=== PATIENT | female | born 1970 | race Caucasian/White ===

== ENCOUNTER 2016-08-10 09:52 | Emergency (ER) | payer OTHER ==
[2016-08-10] MEDS ORDERED: DIATRIZOATE MEGLU/DIATRIZO SOD 30 ML BTL PO ONE (10:39)
[2016-08-10] MEDS ORDERED: diphenhydrAMINE HCL 50 MG/ML VIAL IV ONE (10:42)
[2016-08-10] MEDS ORDERED: METOCLOPRAMIDE HCL 5 MG/ML VIAL IV ONE (10:42)
--- NOTE | 2016-08-10 10:46 | ERNOTE ---
Abdominal HPI - Narrative Date of Service: 08/10/16 - General Chief Complaint: Abdominal Pain Time Seen by Provider: 08/10/16 10:15 Source: patient Exam Limitations: no limitations - Immun/Allergies/Home Medications Immunizatons: IMMUNIZATION HX Immunizations Up to Date Yes History of Influenza Vaccine Yes Hx Pneumococcal Vaccination No Allergies/Adverse Reactions: Allergies ciprofloxacin [From Cipro] Allergy (Verified 08/10/16 10:20) Vomiting ciprofloxacin HCl [From Cipro] Allergy (Verified 08/10/16 10:20) Vomiting Home Medications: HOME MEDICATIONS Acetaminophen with Codeine [Tylenol with Codeine #3 Tablet] 1 each PO Q6H PRN # 24 tab 08/10/16 [Last Taken Unknown] L.acidoph & Paracasei,B.lactis [Probiotic] 1 each PO DAILY 08/10/16 [Last Taken Unknown] Ondansetron [Zofran Odt] 4 mg PO Q6H PRN #12 tab 08/10/16 [Last Taken Unknown] Sulfamethoxazole/Trimethoprim [Bactrim Ds] 1 tab PO BID #20 tab 08/10/16 [Last Taken Unknown] metroNIDAZOLE [Flagyl] 500 mg PO BID #20 tablet 08/10/16 [Last Taken Unknown] - History of Present Illness Narrative: Pt presents with recurrent abdominal pain. She was diagnosed with either diverticulitis or an early colon tumor in 2014, however pt has not followed up those concerns at this time. Timing: constant, intermittent Quality: moderate, cramping Activities at Onset: none Associated Symptoms: Present: nausea Prior Abdominal Problems: Present: other - as noted Review of Systems - Review of Systems Constitutional: Present: See HPI EYE: Present: no symptoms reported ENT: Present: no symptoms reported Respiratory: Present: no symptoms reported Cardiology: Present: no symptoms reported Gastrointestinal/Abdominal: Present: See HPI, nausea, abdominal pain Genitourinary: Present: no symptoms reported Musculoskeletal: Present: no symptoms reported Skin: Present: no symptoms reported Neurological: Present: no symptoms reported Endocrine: Present: no symptoms reported Hematologic/Lymphatic: Present: no symptoms reported Psych: Present: no symptoms reported - Patient's Past Medical History Patient History - Medical: Other - diverticulitis or possible colon cancer Patient History - Cardiac/Respiratory: No pertinent hx Patient History - Cancer: No Hx of Cancer Patient History - Surgical Procedures: Appendectomy, Patient History - Other: None - Social History Smoking Status: Never smoker Have you smoked in the past 12 months: No - Immunizations Immunizations Up to Date: Yes Hx Pneumococcal Vaccination: No History of Influenza Vaccine: Yes Physical Exam - Physical Exam General Appearance: Present: wd/wn, alert, moderate distress Eye Exam: Normal inspection: bilateral, PERRL: bilateral Ears, Nose, Throat: Present: normal ENT inspection, hearing grossly normal, normal pharynx Neck: Present: normal inspection, nontender Respiratory: Present: no respiratory distress, normal breath sounds, no accessory muscle use, chest nontender, lungs clear Cardiovascular/Chest: Present: regular rate, rhythm, no murmur, normal peripheral pulses Gastrointestinal/Abdominal: Present: normal bowel sounds, nondistended, soft, no organomegaly, tenderness - LLQ Rectal Exam: Present: deferred Back Exam: Present: normal inspection, normal range of motion Extremity Exam: Present: normal inspection, non-tender, no edema, normal range of motion Neurological Exam: Present: alert, oriented, normal mood/affect Skin Exam: Present: normal color, warm/dry Lymphatic Exam: Present: no adenopathy ED Progress - Results and Orders Patient's Lab Results:: I have reviewed the patient's lab results. - Vital Signs Patient's Vital Signs:: I have reviewed the patient's vital signs. Vital Signs: Vital Signs 08/10/16 10:16 Temperature 37.5 C Pulse Rate 91 Respiratory 14 Rate Blood Pressure 152/103 O2 Sat by Pulse 96 Oximetry - CT/Ultrasound CT/Ultrasound Narrative: report reviewed - Progress/Reassessment Chief Complaint: Abdominal Pain Progress:: Unchanged - Transfer of Care Expected Disposition: Discharge Departure - Departure Clinical Impression: Diverticulitis Qualifiers: Diverticulitis site: large intestine Diverticulitis bleeding: without bleeding Diverticulitis complication: without perforation or abscess Qualified Code(s): K57.32 - Diverticulitis of large intestine without perforation or abscess without bleeding Disposition: Home self-care Condition: Good Instructions: Diverticulitis, [id number] Referrals: Christopher Singh MD [Primary Care Provider] - Prescriptions: Acetaminophen with Codeine [Tylenol with Codeine #3 Tablet] 1 each PO Q6H PRN # 24 tab PRN Reason: Moderate Pain Ondansetron [Zofran Odt] 4 mg PO Q6H PRN #12 tab PRN Reason: Nausea And Vomiting Sulfamethoxazole/Trimethoprim [Bactrim Ds] 1 tab PO BID #20 tab metroNIDAZOLE [Flagyl] 500 mg PO BID #20 tablet
[2016-08-10] MEDS ORDERED: diphenhydrAMINE HCL 50 MG/ML VIAL ONE (10:48)
[2016-08-10] MEDS ORDERED: DIATRIZOATE MEGLU/DIATRIZO SOD 30 ML BTL ONE (10:48)
[2016-08-10] MEDS ORDERED: METOCLOPRAMIDE HCL 5 MG/ML VIAL ONE (10:48)
[2016-08-10 10:57] LABS: Hematocrit 38.5 % (37.0-47.0); Hemoglobin 13.1 gm/dL (12.5-16.0); Mean Corpuscular Hemoglobin 28.9 pg (27-31); Mean Platelet Volume 8.6 fl (6.0-9.5); Neutrophil # 6.1 K/mm3 (1.3-6.0); Neutrophil % 68.9 % (42-75.0); Platelet Count 325 K/mm3 (150-450); Red Blood Count 4.53 M/mm3 (4.2-5.4); White Blood Count 8.8 K/mm3 (4.0-10.5)
[2016-08-10 11:13] LABS: Albumin * 3.7 gm/dl (3.4-5.0); BUN/Creatinine Ratio 7.5 (9.0-21.6); Bilirubin, Total 0.7 mg/dL (0.0-1.1); Ca. Corrected For Albumin 8.7 mg/dL (8.4-10.2); Calcium * 8.8 mg/dL (7.9-10.9); Carbon Dioxide 25.9 mmol/L (24-32.6); Potassium 3.9 mmol/L (3.4-4.6)
[2016-08-10 12:10] LABS: Urine Appearance Clear; Urine Color Dark Yellow
[2016-08-10 12:11] LABS: Urine Bacteria TRACE; Urine Bilirubin Negative (NEGATIVE); Urine Blood 50 /ul (NEGATIVE); Urine Ketone 15 mg/dL (NEGATIVE); Urine Nitrite Negative (NEGATIVE); Urine Protein Negative (NEGATIVE); Urine RBC 0-5 /hpf (0-5); Urine Urobilinogen Normal (NORMAL); Urine WBC 0-5 /hpf (0-5); Urine pH 5.5 pH (5.0-7.0)
[2016-08-10 14:37] VITALS: BP 150/90
== END 2016-08-10 14:35 | disposition home or self-care (01) ==
LOC: ER 09:52
DX: K57.32 Diverticulitis of large intestine without perforation or abscess without bleeding (principal)

== ENCOUNTER 2018-12-05 16:15 | Inpatient (IN) ==
[2018-12-05] MEDS ORDERED: HYDROmorphone HCL 1 MG/ML DISP.SYRIN IV ONE (16:34)
--- NOTE | 2018-12-05 16:36 | ERNOTE ---
Abdominal HPI - Narrative Date of Service: 12/05/18 - General Chief Complaint: Abdominal Pain Time Seen by Provider: 12/05/18 16:15 Source: patient Exam Limitations: no limitations - Immun/Allergies/Home Medications Immunizatons: IMMUNIZATION HX Immunizations Up to Date Yes History of Influenza Vaccine No Hx Pneumococcal Vaccination No Allergies/Adverse Reactions: Allergies ciprofloxacin [From Cipro] Adverse Reaction (Verified 01/08/18 13:48) Vomiting Also causes violent stomach cramps metronidazole [From Flagyl] Adverse Reaction (Verified 01/08/18 13:48) Vomiting Home Medications: HOME MEDICATIONS L.acidoph,Paracasei, B.lactis [Probiotic] 1 ea PO DAILY 08/10/16 [Last Taken 12/03/18 20:00] metoprolol tartrate 25 mg tablet 25 mg PO BID #60 tab 01/22/18 [Last Taken 12/03 20:00] Acetaminophen with Codeine [Tylenol with Codeine #3 Tablet] 1 ea PO Q6H PRN #20 tab 12/05/18 [Last Taken Unknown] Amox Tr/Potassium Clavulanate [Augmentin 875-125 Tablet] 875 mg PO Q12H #20 tab 12/05/18 [Last Taken Unknown] Ondansetron [Zofran Odt] 4 mg PO Q6H PRN #20 tab 12/05/18 [Last Taken Unknown] metroNIDAZOLE [Flagyl] 500 mg PO Q8H #30 tab 12/05/18 [Last Taken Unknown] - History of Present Illness Narrative: 48-year-old female presents for abdominal pain. She was seen in our emergency department earlier this morning and diagnosed with acute non-complicated diverticulitis. She was discharged with Augmentin, Flagyl, Zofran, and Tylenol 3 for pain control. She presents again this afternoon for uncontrolled pain. She also reports continued nausea. Timing: getting worse, intermittent Quality: moderate Activities at Onset: none Associated Symptoms: Present: nausea Prior Abdominal Problems: Present: similar symptoms - Previous diagnosis of diverticulitis. Review of Systems - Narrative Narrative: REVIEW OF SYSTEMS GENERAL: Negative for any fevers, chills, or weight loss. HEENT: Denies sore throats, congestion, changes in vision, changes in hearing, CARDIAC: Negative for any chest pain, dyspnea, or palpitations. PULMONARY: Negative for any shortness of breath, cough, or wheezing. GASTROINTESTINAL: Positive for abdominal pain, nausea, vomiting, denies constipation, or diarrhea. GENITOURINARY: Negative for any dysuria, changes in urine output. INTEGUMENTARY: Negative for any rashes. NEUROLOGIC: Negative for changes in vision or headaches. RHEUMATOLOGIC: Negative for any joint pains, Medical History (Updated 12/05/18 @ 20:02 by Lilo Carlson DO) Abdominal pain Onset Date: 05/04/15 LLQ Blood pressure elevated without history of HTN Onset Date: 12/02/17 Broken tooth Onset Date: 12/03/17 Diarrhea Onset Date: 05/04/15 Diverticulitis Onset Date: 05/26/15 Diverticulosis Onset Date: 06/20/15 Gastric ulcer Onset Date: Unknown Irregular menses Onset Date: 07/07/14 Menorrhagia Onset Date: 10/23/16 Ovarian cyst Onset Date: 07/21/14 Pelvic pressure in female Onset Date: 07/07/14 Spontaneous Onset Date: ~12/2008 Vaginitis Onset Date: 07/07/14 [place] teeth extracted Onset Date: Unknown Surgical History: Surgical History (Updated 12/05/18 @ 20:02 by Lilo Carlson DO) Hx of appendectomy Onset Date: ~1993 open Previous section Onset Date: ~2009 pre-eclamptic 01/27/1995, 2009 Family History: Family History (Updated 12/22/17 @ 11:19 by Anastasiya Hicks RN) Brother Asthma Father , age 24 MVA No problems noted. Grandmother COPD (chronic obstructive pulmonary disease) Asthma Diabetes Heart disease Hypertension Thyroid disease Mother , age 69 Hypertension Diabetes Ulcerative colitis Sister Food allergy Social History: Preferred Language Kiswahili Do you have any mosque or No cultural preference? Smoking Status Never smoker Have you smoked in the past 12 No months Do you dip or chew tobacco No Alcohol Use none Drug Use none (Last Updated 01/29/18 @ 13:00 by Christopher Singh MD) No Social History Section defined Physical Exam - Physical Exam General Appearance: Present: alert, moderate distress - in pain Head Exam: Present: normal inspection Neck: Present: normal inspection Respiratory: Present: no respiratory distress Cardiovascular/Chest: Present: regular rate, rhythm, normal peripheral pulses Gastrointestinal/Abdominal: Present: normal bowel sounds, tenderness. Absent: guarding, rebound Extremity Exam: Present: normal inspection Neurological Exam: Present: alert, normal mood/affect Skin Exam: Present: normal color, warm/dry Progress - Date and Time Seen: Date and Time: 12/05/18 16:49 PT presents to the emergency department for uncontrolled pain of her diverticulitis which she was recently diagnosed with this morning. She is also unable to tolerate her p.o. medications. She will need to be treated in the hospital for uncontrolled pain and outpatient therapy failure. I will reach out to the inpatient hospitalist after he got her pain better controlled. 12/05/18 16:49 I have ordered Dilaudid for pain control and IV fluids. 12/05/18 17:[address] Carlson regarding inpatient treatment, patient is accepted and will be seen by the inpatient team. - Vital Signs Vital Signs: Vital Signs 12/05/18 16:26 Temperature 36.9 C Pulse Rate 90 Respiratory Rate 22 H Blood Pressure 148/93 H O2 Sat by Pulse Oximetry 94 - Progress/Reassessment Chief Complaint: Abdominal Pain Departure Clinical Impression: Diverticulitis Qualifiers: Diverticulitis site: large intestine Diverticulitis bleeding: without bleeding Diverticulitis complication: without perforation or abscess Qualified Code(s): K57.32 - Diverticulitis of large intestine without perforation or abscess without bleeding - Departure Disposition: Short Term Hospital Inpatient Condition: Stable
[2018-12-05] MEDS: NORMAL SALINE 1,000 ML IV PRN (16:59)
[2018-12-05] MEDS ORDERED: ONDANSETRON HCL/PF 2 MG/ML VIAL IV ONE (17:29)
[2018-12-05] MEDS ORDERED: ONDANSETRON 4 MG TAB.RAPDIS PO PRN (19:05)
[2018-12-05] MEDS ORDERED: ACETAMINOPHEN WITH CODEINE 1 EACH TABLET PO PRN (19:06)
[2018-12-05] MEDS ORDERED: METOPROLOL TARTRATE 25 MG TABLET PO SCH (19:30)
[2018-12-05] MEDS ORDERED: MORPHINE SULFATE 2 MG/ML DISP.SYRIN IV PRN (19:55)
--- NOTE | 2018-12-05 20:02 | HP ---
Chief Complaint - Chief Complaint Date of Service: 12/05/18 Time of Service: 19:41 Chief Complaint: diverticulitis History of Present Illness: Patient with PMHx of hypertension, diverticulosis, and previous diverticulitis was seen in the ER earlier today and diagnosed with diverticulitis. She started having left lower abdominal pain, vomiting, and diarrhea yesterday. She had a fever just over 100. Decreased appetite. She reported Cipro and Flagyl cause vomiting, but she agreed to start Flagyl and Augmentin. She left the ER, but felt like she was in too much pain and returned. Medical History (Updated 12/05/18 @ 20:02 by Lilo Carlson DO) Abdominal pain Onset Date: 05/04/15 LLQ Blood pressure elevated without history of HTN Onset Date: 12/02/17 Broken tooth Onset Date: 12/03/17 Diarrhea Onset Date: 05/04/15 Diverticulitis Onset Date: 05/26/15 Diverticulosis Onset Date: 06/20/15 Gastric ulcer Onset Date: Unknown Irregular menses Onset Date: 07/07/14 Menorrhagia Onset Date: 10/23/16 Ovarian cyst Onset Date: 07/21/14 Pelvic pressure in female Onset Date: 07/07/14 Spontaneous Onset Date: ~12/2008 Vaginitis Onset Date: 07/07/14 [place] teeth extracted Onset Date: Unknown Surgical History: Surgical History (Updated 12/05/18 @ 20:02 by Lilo Carlson DO) Hx of appendectomy Onset Date: ~1993 open Previous section Onset Date: ~2009 pre-eclamptic 01/27/1995, 2009 Family History: Family History (Updated 12/22/17 @ 11:19 by Anastasiya Hicks RN) Brother Asthma Father , age 24 MVA No problems noted. Grandmother COPD (chronic obstructive pulmonary disease) Asthma Diabetes Heart disease Hypertension Thyroid disease Mother , age 69 Hypertension Diabetes Ulcerative colitis Sister Food allergy Social History: Preferred Language Faroese Do you have any caodaism or No cultural preference? Smoking Status Never smoker Have you smoked in the past 12 No months Do you dip or chew tobacco No Alcohol Use none Drug Use none (Last Updated 01/29/18 @ 13:00 by Christopher Singh MD) No Social History Section defined Review Of Systems (GEN) - Review of Systems Generalized/Overall Review: Present: Chills, Fever Respiratory: Absent: Cough, Shortness of Breath Cardiac: Absent: Chest Pain, Edema Abdominal: Present: Nausea, Vomiting, Abdominal Pain, Diarrhea. Absent: Hematemesis, Bright blood from rectum Genitourinary: Absent: Dysuria Musculoskeletal: Present: No Symptoms Reported Skin: Present: No Symptoms Reported Immunizations: IMMUNIZATION HX Immunizations Up to Date Yes History of Influenza Vaccine No Hx Pneumococcal Vaccination No Allergies/Adverse Reactions: Allergies Allergy/AdvReac Type Severity Reaction Status Date / Time ciprofloxacin [From Cipro] AdvReac Vomiting Verified 01/08/18 13:48 metronidazole [From Flagyl] AdvReac Vomiting Verified 01/08/18 13:48 Home Medications: HOME MEDICATIONS L.acidoph,Paracasei, B.lactis [Probiotic] 1 ea PO DAILY 08/10/16 [Last Taken Unknown] metoprolol tartrate 25 mg tablet 25 mg PO BID #60 tab 01/22/18 [Last Taken Unknown] Acetaminophen with Codeine [Tylenol with Codeine #3 Tablet] 1 ea PO Q6H PRN #20 tab 12/05/18 [Last Taken Unknown] Amox Tr/Potassium Clavulanate [Augmentin 875-125 Tablet] 875 mg PO Q12H #20 tab 12/05/18 [Last Taken Unknown] Ondansetron [Zofran Odt] 4 mg PO Q6H PRN #20 tab 12/05/18 [Last Taken Unknown] metroNIDAZOLE [Flagyl] 500 mg PO Q8H #30 tab 12/05/18 [Last Taken Unknown] Exam - Exam Vital Signs: Vital Signs - Last Taken Temp 36.9 C 12/05/18 16:26 Pulse 94 12/05/18 19:10 Resp 18 12/05/18 19:10 BP 134/88 12/05/18 19:10 Pulse Ox 98 12/05/18 19:10 Constitutional: Present: Alert, Oriented x3, Cooperative, No distress, Overweight ENT Exam: Present: dry mucous membranes Respiratory: Present: normal breath sounds, no respiratory distress Cardiovascular/Chest: Present: regular rate, rhythm Abdomen: Present: soft, nondistended, obese, tender - Right and left lower quadrants Extremity: Absent: lower extremity edema Appearance: Present: appropriate appearance Eye contact: Present: cooperative Assessment/Plan - Assessment/Plan (1) Diverticulitis Assessment: We will administer IV Cipro and Flagyl. She reports severe vomiting with p.o. Cipro, and mild vomiting with p.o. Flagyl, but has not had them IV before. CT scan from earlier today shows acute uncomplicated sigmoid diverticulitis. She is afebrile, and her white blood cell count is mildly elevated at 15.0. She is okay to have ice water. Will administer IV Zofran for nausea and IV morphine for pain overnight. Problem: Acute Qualifiers: Diverticulitis site: large intestine Diverticulitis bleeding: without bleeding Diverticulitis complication: without perforation or abscess Qualified Code(s): K57.32 - Diverticulitis of large intestine without perforation or abscess without bleeding (2) Hypertension Assessment: She does not feel like she can tolerate anything p.o. currently. We will hold her metoprolol until the morning. Blood pressure not significantly elevated. Problem: Chronic Qualifiers:
[2018-12-05] MEDS: metroNIDAZOLE 500 MG TABLET PO SCH (20:41)
[2018-12-05] MEDS: CIPROFLOXACIN IN 5 % DEXTROSE 400 MG/200 ML BAG IV SCH (20:46)
[2018-12-05] MEDS: ONDANSETRON HCL/PF 2 MG/ML VIAL IV PRN (21:54)
[2018-12-05] MEDS: metroNIDAZOLE/SODIUM CHLORIDE 500 MG/100 ML BAG IV SCH (21:58)
[2018-12-06] MEDS: MORPHINE SULFATE 4 MG/ML SYRG IV PRN ×5 (00:41→18:17)
[2018-12-06] MEDS: NORMAL SALINE 1,000 ML IV PRN ×2 (02:37→12:47)
[2018-12-06] MEDS: ONDANSETRON HCL/PF 2 MG/ML VIAL IV PRN ×3 (04:55→18:13)
[2018-12-06] MEDS: metroNIDAZOLE/SODIUM CHLORIDE 500 MG/100 ML BAG IV SCH ×3 (04:58→21:12)
[2018-12-06] MEDS: METOPROLOL TARTRATE 25 MG TABLET PO SCH ×3 (07:30→16:28)
[2018-12-06] MEDS: CIPROFLOXACIN IN 5 % DEXTROSE 400 MG/200 ML BAG IV SCH ×2 (08:21→19:56)
--- NOTE | 2018-12-06 11:15 | PN ---
Subjective - Date and Time Seen Date: 12/06/18 Time: 11:15 Subjective Narrative: She reports the pain medicines have finally started to work. She has started to feel better within the last 4 to 5 hours, but still has significant lower abdominal pain and significant nausea. She does not feel like she can tolerate tablets or much p.o. intake. Objective - Review of Systems Generalized/Overall Review: Denies: Fever Respiratory: Reports: Shortness of Breath. Denies: Cough Cardiac: Reports: Chest Pain, Edema Abdominal: Reports: Nausea, Vomiting, Abdominal Pain. Denies: Diarrhea Genitourinary Symptoms: Reports: No Symptoms Reported Musculoskeletal Complaints: Reports: No Symptoms Reported Skin: Reports: No Symptoms Reported - Vitals Vitals: Last Vital Signs Temp 37 C 12/06/18 10:36 Pulse 94 12/06/18 10:36 Resp 18 12/06/18 10:36 BP 107/71 12/06/18 10:36 Pulse Ox 96 12/06/18 10:36 - Exam Constitutional: Present: Alert, Cooperative, No distress - appears uncomfortable, Obese Respiratory: Present: lungs clear, normal breath sounds Cardiovascular/Chest: Present: regular rate, rhythm, no murmur Abdomen: Present: soft, tender - bilateral lower abdomen, hypoactive Extremity: Present: no pedal edema Eye contact: Present: cooperative Assessment/Plan - Problems/Diagnosis (1) Diverticulitis Problem: Acute Qualifiers: Diverticulitis site: large intestine Diverticulitis bleeding: without bleeding Diverticulitis complication: without perforation or abscess Qualified Code(s): K57.32 - Diverticulitis of large intestine without perforation or abscess without bleeding Narrative: Continue IV cipro, flagyl, zofran, and 4 mg morphine. She is not yet able to tolerate anything po. She reports possible mild improvement over the last few hours. (2) Hypertension Problem: Chronic Qualifiers: Narrative: She is prescribed metoprolol for HTN. She can not tolerate po meds currently, so she has not had metoprolol since admission. Her BP has been appropriate, with the most recent reading being 107/71. Will continue to hold metoprolol until her diverticulitis improves clinically.
[2018-12-07] MEDS: NORMAL SALINE 1,000 ML IV PRN ×2 (00:01→10:12)
[2018-12-07] MEDS: ONDANSETRON HCL/PF 2 MG/ML VIAL IV PRN ×4 (00:13→23:33)
[2018-12-07] MEDS: MORPHINE SULFATE 4 MG/ML SYRG IV PRN ×6 (00:14→23:20)
[2018-12-07] MEDS: metroNIDAZOLE 500 MG TABLET PO SCH (03:54)
[2018-12-07] MEDS: metroNIDAZOLE/SODIUM CHLORIDE 500 MG/100 ML BAG IV SCH (04:26)
[2018-12-07 06:28] LABS: Hematocrit 35.2 % (37.0-47.0); Hemoglobin 11.3 gm/dL (12.5-16.0); Mean Corpuscular Hemoglobin 28.3 pg (27-31); Mean Corpuscular Hgb Conc 32.1 g/dl (32-36); Mean Platelet Volume 8.9 fl (8-12.5); Neutrophil % 88.9 % (42-75.0); Platelet Count 296 K/mm3 (150-450); Red Cell Distribution Width 13.5 % (11.5-14.0)
[2018-12-07] MEDS: CIPROFLOXACIN IN 5 % DEXTROSE 400 MG/200 ML BAG IV SCH (08:08)
[2018-12-07] MEDS: ENOXAPARIN SODIUM 40 MG/0.4 ML SYRG SC SCH (08:10)
[2018-12-07 08:22] LABS: Hemoglobin 11.3 gm/dL (12.5-16.0); Mean Cell Volume 87.1 fl (78-100); Mean Corpuscular Hemoglobin 28.1 pg (27-31); Mean Corpuscular Hgb Conc 32.3 g/dl (32-36); Neutrophil # 16.3 K/mm3 (1.3-6.0); Platelet Count 300 K/mm3 (150-450); Red Blood Count 4.02 M/mm3 (4.2-5.4); Red Cell Distribution Width 13.5 % (11.5-14.0); White Blood Count 18.2 K/mm3 (4.0-10.5)
[2018-12-07 08:30] LABS: BUN/Creatinine Ratio 8.5 (9.0-21.6); Calcium * 8.3 mg/dL (7.9-10.9); Estimated Creat Clear 82.8
[2018-12-07] MEDS: METOPROLOL TARTRATE 25 MG TABLET PO SCH ×2 (10:13→17:23)
[2018-12-07] MEDS ORDERED: POTASSIUM CHLORIDE 20 MEQ in NORMAL SALINE 1,000 ML IV PRN (12:17)
[2018-12-07] MEDS ORDERED: POTASSIUM CHLORIDE 20 MEQ in NORMAL SALINE 1,000 ML IV SCH (12:30)
[2018-12-07] MEDS: POTASSIUM CHLORIDE 20 MEQ in NORMAL SALINE 1,000 ML IV SCH ×2 (12:40→21:39)
--- NOTE | 2018-12-07 12:52 | PN ---
Subjective - Date and Time Seen Date: 12/07/18 Time: 12:40 Subjective Narrative: Her abdominal pain is a little better than previously. At its worst, it was 8 out of 10. Now it is 4-5 out of 10. Resting quietly helps it feel better. Moving around makes it worse. The pain is burning in nature and primarily in the left lower quadrant, but also a little over towards the right lower quadrant. Previously it radiated into the upper abdomen, but it is not doing that at the present time. She has diarrhea but no blood in her stools. She has not actually vomited in the last 24 hours, but has felt like it. This occurs around the time she gets her IV morphine as well as around the time she gets her IV antibiotics. Cipro and Flagyl in the past caused her extreme vomiting when taken orally. No sweats in the last 24 hours. No shaking chills in the last 12 hours. She has been able to take ice chips and water without any actual vomiting. She has been able to walk around in her room, and thinks that she could also walk around out in the halls. Objective - Review of Systems Generalized/Overall Review: Reports: Chills, Malaise EENTM: Denies: Eye Pain, Blurred Vision Respiratory: Denies: Cough, Shortness of Breath Cardiac: Denies: Chest Pain, Edema Abdominal: Reports: Nausea, Abdominal Pain, Diarrhea. Denies: Vomiting Genitourinary Symptoms: Denies: Burning, Urgency Musculoskeletal Complaints: Reports: Back Pain - From lying in bed she thinks. Denies: Joint Pain Neurological: Denies: Headache, Anxiety, Depressed Skin: Denies: Lesions, Rash Endocrine: Denies: Intolerance to Cold, Intolerance to Heat Misc: All systems neg except as marked - Vitals Vitals: Last Vital Signs Temp 37.5 C 12/07/18 11:20 Pulse 87 12/07/18 11:20 Resp 16 12/07/18 11:20 BP 123/77 12/07/18 11:20 Pulse Ox 96 12/07/18 11:20 I reviewed all vitals since admission. - Abnormal Lab Findings Abnormal Lab Findings: Abnormal Lab Results 12/07/18 12/07/18 12/07/18 Range/Units 06:20 07:58 08:10 WBC 18.0 H 18.2 H (4.0-10.5) K/mm3 RBC 4.00 L 4.02 L (4.2-5.4) M/mm3 Hgb 11.3 L 11.3 L (12.5-16.0) gm/dL Hct 35.2 L 35.0 L (37.0-47.0) % Immature Gran % (Auto) 1.10 H 0.80 H (0.001-0.429) % Immature Gran # (Auto) 0.20 H 0.15 H (0.000-0.0310) K/mm3 Neutrophils % 88.9 H 90.0 H (42-75.0) % Lymphocytes % 5.5 L 5.3 L (20-51) % Neutrophils # 16.0 H 16.3 H (1.3-6.0) K/mm3 Lymphocytes # 0.99 L 0.96 L (1.5-3.5) k/mm3 Potassium 3.0 L D (3.4-4.6) mmol/L Anion Gap 15.0 H (6.8-13.8) mmol/L BUN/Creatinine Ratio 8.5 L (9.0-21.6) Her CBC is essentially the same as yesterday. We will continue IV antibiotics, and check blood work again tomorrow. Her potassium is a little low at 3.0, so we will add some potassium to her current IV fluids. - Exam Constitutional: Present: Alert, Oriented x3, Cooperative, No distress ENT Exam: Present: normal ENT inspection, hearing grossly normal Neck: Present: non-tender, normal inspection. Absent: lymphadenopathy (R), lymphadenopathy (L), thyromegaly Breasts: Present: Exam deferred Respiratory: Present: chest non-tender, lungs clear Cardiovascular/Chest: Present: normal peripheral pulses, regular rate, rhythm, no gallop, no JVD, no murmur Abdomen: Present: Normal bowel sounds, soft, nondistended, no rebound tenderness, no hepatospenomegaly, obese, tender - Primarily left lower quadrant. A little bit in the midline low and to the right lower quadrant. /Rectal: Present: Exam deferred Extremity: Present: normal range of motion, non-tender, normal inspection Skin Exam: Present: normal color, warm/dry, no cyanosis Lymphatic: Present: no adenopathy Neurologic: Present: normal mood/affect. Absent: abnormal gait, motor weakness Appearance: Present: appropriate appearance, appropriate insight, neat Eye contact: Present: good eye contact, normal speech Thoughts: Present: normal thought pattern Assessment/Plan - Problems/Diagnosis (1) Diverticulitis Problem: Acute Qualifiers: Diverticulitis site: large intestine Diverticulitis bleeding: without bleeding Diverticulitis complication: without perforation or abscess Qualified Code(s): K57.32 - Diverticulitis of large intestine without perforation or abscess without bleeding Narrative: Because she appears to be nauseated with Cipro and Flagyl, we will switch to IV Pipracil andtazobactam. We will add Florastor orally to her treatment and will try clear liquids by mouth. We will also increase her activity by walking with her in the halls. We will repeat blood work again in the morning. As she still having trouble, and not taking much by mouth or any of her medicines by mouth, we will wait and see how things are by tomorrow morning, and in the meantime admit her to an acute bed. (2) Hypertension Problem: Chronic Qualifiers: Hypertension type: essential hypertension Narrative: For now, even off metoprolol, her blood pressure is not very high. For the time being we will simply monitor it, adjust as needed, and hopefully tomorrow resume her oral metoprolol. (3) BMI 40.0-44.9, adult Problem: Chronic
[2018-12-07] MEDS: PIPERACILLIN SODIUM/TAZOBACTAM 3.375 GM in DEXTROSE 5 % IN WATER 100 ML IV SCH ×4 (13:19→21:20)
[2018-12-07] MEDS: SACCHAROMYCES BOULARDII 250 MG CAPSULE PO SCH (21:20)
[2018-12-08] MEDS: MORPHINE SULFATE 4 MG/ML SYRG IV PRN (03:23)
[2018-12-08] MEDS: PIPERACILLIN SODIUM/TAZOBACTAM 3.375 GM in DEXTROSE 5 % IN WATER 100 ML IV SCH ×2 (05:08)
[2018-12-08 05:34] LABS: Hematocrit 32.9 % (37.0-47.0); Hemoglobin 10.6 gm/dL (12.5-16.0); Mean Cell Volume 87.7 fl (78-100); Mean Corpuscular Hemoglobin 28.3 pg (27-31); Mean Corpuscular Hgb Conc 32.2 g/dl (32-36); Mean Platelet Volume 8.8 fl (8-12.5); Neutrophil # 13.1 K/mm3 (1.3-6.0); Platelet Count 339 K/mm3 (150-450); Red Blood Count 3.75 M/mm3 (4.2-5.4); Red Cell Distribution Width 13.5 % (11.5-14.0); White Blood Count 15.2 K/mm3 (4.0-10.5)
[2018-12-08 05:49] LABS: Albumin * 2.2 gm/dl (3.4-5.0); Anion Gap 13.4 mmol/L (6.8-13.8); BUN/Creatinine Ratio 6.7 (9.0-21.6); Bilirubin, Total 0.6 mg/dL (0.0-1.1); Calcium * 7.9 mg/dL (7.9-10.9); Carbon Dioxide 24.9 mmol/L (24-32.6); Potassium 3.3 mmol/L (3.4-4.6); Total Protein 6.2 gm/dL (6.2-8.2)
[2018-12-08] MEDS: POTASSIUM CHLORIDE 20 MEQ in NORMAL SALINE 1,000 ML IV SCH (06:07)
[2018-12-08] MEDS ORDERED: ACETAMINOPHEN 325 MG TABLET PO PRN (06:25)
--- NOTE | 2018-12-08 06:35 | PN ---
Subjective - Date and Time Seen Date: 12/08/18 Time: 06:26 Subjective Narrative: Her pain has improved more since yesterday. Is now ranging from 2-4. It is in the same location as before. Her diarrhea has cleared up completely. Her nausea is almost entirely gone. It does recur a little bit with IV morphine. There is been no fever chills or sweats. She is walking in the halls. She does not like anything on her clear liquid diet and would like to have something different. Objective - Review of Systems Generalized/Overall Review: Denies: Chills, Fever EENTM: Denies: Eye Pain, Blurred Vision Respiratory: Denies: Cough, Shortness of Breath Cardiac: Denies: Chest Pain, Palpitations Abdominal: Reports: Abdominal Pain. Denies: Nausea, Diarrhea Genitourinary Symptoms: Denies: Burning, Urgency Musculoskeletal Complaints: Denies: Joint Pain, Back Pain Neurological: Denies: Headache Skin: Denies: Lesions, Rash Endocrine: Reports: No Symptoms Reported Misc: All systems neg except as marked - Vitals Vitals: Last Vital Signs Temp 36.9 C 12/08/18 06:13 Pulse 106 H 12/08/18 06:13 Resp 18 12/08/18 06:13 BP 129/86 12/08/18 03:00 Pulse Ox 97 12/08/18 06:13 Vitals have remained stable. Her blood pressure is in the normal range. - Abnormal Lab Findings Abnormal Lab Findings: Abnormal Lab Results 12/07/18 12/07/18 12/07/18 Range/Units 06:20 07:58 08:10 WBC 18.0 H 18.2 H (4.0-10.5) K/mm3 RBC 4.00 L 4.02 L (4.2-5.4) M/mm3 Hgb 11.3 L 11.3 L (12.5-16.0) gm/dL Hct 35.2 L 35.0 L (37.0-47.0) % Immature Gran % (Auto) 1.10 H 0.80 H (0.001-0.429) % Immature Gran # (Auto) 0.20 H 0.15 H (0.000-0.0310) K/mm3 Neutrophils % 88.9 H 90.0 H (42-75.0) % Lymphocytes % 5.5 L 5.3 L (20-51) % Neutrophils # 16.0 H 16.3 H (1.3-6.0) K/mm3 Lymphocytes # 0.99 L 0.96 L (1.5-3.5) k/mm3 Potassium 3.0 L D (3.4-4.6) mmol/L Anion Gap 15.0 H (6.8-13.8) mmol/L BUN/Creatinine Ratio 8.5 L (9.0-21.6) ALT (19-67) U/L Albumin (3.4-5.0) gm/dl 12/08/18 12/08/18 Range/Units 05:31 05:31 WBC 15.2 H (4.0-10.5) K/mm3 RBC 3.75 L (4.2-5.4) M/mm3 Hgb 10.6 L (12.5-16.0) gm/dL Hct 32.9 L (37.0-47.0) % Immature Gran % (Auto) 0.80 H (0.001-0.429) % Immature Gran # (Auto) 0.12 H (0.000-0.0310) K/mm3 Neutrophils % 86.0 H (42-75.0) % Lymphocytes % 8.8 L (20-51) % Neutrophils # 13.1 H (1.3-6.0) K/mm3 Lymphocytes # 1.33 L (1.5-3.5) k/mm3 Potassium 3.3 L (3.4-4.6) mmol/L Anion Gap (6.8-13.8) mmol/L BUN/Creatinine Ratio 6.7 L (9.0-21.6) ALT 11 L (19-67) U/L Albumin 2.2 L (3.4-5.0) gm/dl Her white blood count has now decreased to 15.2. Her hemoglobin is a tad lower, but not much. We will follow-up with her mild anemia as an outpatient. The decreasing white count goes along with her clinical improvement. - Exam Constitutional: Present: Alert, Oriented x3, Cooperative, Well developed, Well nourished, Obese - BMI 43.1 ENT Exam: Present: normal ENT inspection, hearing grossly normal Neck: Present: normal inspection. Absent: lymphadenopathy (R), lymphadenopathy (L), thyromegaly Breasts: Present: Exam deferred Respiratory: Present: chest non-tender, lungs clear Cardiovascular/Chest: Present: regular rate, rhythm, no edema, no gallop, no JVD, no murmur Abdomen: Present: Normal bowel sounds, soft, nondistended, no rebound tenderness, no hepatospenomegaly, no masses, tender - Same areas but less so than yesterday /Rectal: Present: Exam deferred Extremity: Present: normal inspection, normal capillary refill Skin Exam: Present: normal color, warm/dry, no cyanosis Lymphatic: Present: no adenopathy Neurologic: Present: normal mood/affect. Absent: abnormal gait Appearance: Present: appropriate appearance, appropriate insight, neat Eye contact: Present: good eye contact, normal speech Thoughts: Present: normal thought pattern Assessment/Plan - Problems/Diagnosis (1) Diverticulitis Problem: Acute Qualifiers: Diverticulitis site: large intestine Diverticulitis bleeding: without bleeding Diverticulitis complication: without perforation or abscess Qualified Code(s): K57.32 - Diverticulitis of large intestine without perforation or abscess without bleeding Narrative: We will switch to a full liquid diet this morning. We will switch from IV antibiotics to Augmentin by mouth. Her potassium has improved to 3.3. We will decrease the IV rate to 50 mL's per hour. We will switch from the morphine and ondansetron to p.o. Depending on how she does, she may be able to go home, by the end of the day or by tomorrow morning. We will continue to monitor clinically. (2) Hypertension Problem: Chronic Qualifiers: Hypertension type: essential hypertension Narrative: Her blood pressure is normal. We will continue with p.o. metoprolol. (3) BMI 40.0-44.9, adult Problem: Chronic
[2018-12-08] MEDS: MORPHINE SULFATE 10 MG/0.5 ML SYRINGE PO PRN ×3 (07:41→20:06)
[2018-12-08] MEDS: ONDANSETRON 4 MG TAB.RAPDIS PO PRN ×3 (07:43→20:05)
[2018-12-08] MEDS: METOPROLOL TARTRATE 25 MG TABLET PO SCH ×2 (08:21→20:00)
[2018-12-08] MEDS: ENOXAPARIN SODIUM 40 MG/0.4 ML SYRG SC SCH (08:21)
[2018-12-08] MEDS: SACCHAROMYCES BOULARDII 250 MG CAPSULE PO SCH ×2 (08:21→22:05)
[2018-12-08] MEDS: AMOX TR/POTASSIUM CLAVULANATE 500 MG TABLET PO SCH ×3 (08:22→19:59)
--- NOTE | 2018-12-08 16:39 | PN ---
Nael Note - Interim Date: 12/08/18 Time: 16:35 Narrative: 12/08/18 16:35 I was thinking about sending her home this evening, but: I ordered full liquids this morning, but she just seems uninterested. Her pain is better than on admission, but does not seem much better than this morning. She says that this episode of diverticulitis is lasting considerably longer and not getting well as quickly as her previous episode. She is still fairly nauseated, but has not actually vomited. Moving around substantially increases the pain. She is only use the oral morphine through the day for pain, which works well. She has had no fever chills or sweats. Her vitals have remained relatively stable, but her blood pressure is borderline elevated and her pulse is running 90-100. Once again, her white blood count decreased somewhat this morning, going from about 18,000-15,000. She has had 2 episodes of diarrhea today, but considerably less than in the previous days. I discussed the situation with her at some length. We decided together to repeat a CT scan of her abdomen and pelvis this evening, to make sure that she is not developing complicated diverticulitis. Otherwise we will reconsider whether to send her home tomorrow morning.
[2018-12-08] MEDS ORDERED: DIATRIZOATE MEGLUMINE, SODIUM 30 ML BTL PO ONE (16:57)
[2018-12-08] MEDS ORDERED: MORPHINE SULFATE 10 MG/ML SYRG IV PRN (22:52)
[2018-12-08] MEDS ORDERED: ONDANSETRON HCL/PF 2 MG/ML VIAL IV PRN (22:55)
--- NOTE | 2018-12-09 00:05 | DS ---
Transfer Discharge Summary - Diagnosis(s)/Problems (1) Diverticulitis Problem: Acute (2) Hypertension Problem: Chronic (3) BMI 40.0-44.9, adult Problem: Chronic (4) Pelvic abscess in female Narrative: We repeated an abdominal pelvic CAT scan this evening. It showed a probable developing pelvic abscess in the area of the original diverticulitis. Also there was free fluid in the pelvis and along the gutters in the abdomen. There was no free air. There was edema in the soft tissues of the abdomen. CT scan 3 days ago showed only simple sigmoid diverticulitis. Problem: Acute (5) Diarrhea Problem: Acute - Course Description of Stay: Following admission to the hospital, she was made n.p.o. She was started on IV Cipro and Flagyl. She has a history of severe vomiting with oral Flagyl and Cipro. She was given parenteral pain and nausea control. 2 days after admission, she stated that every time she got the IV antibiotics she became more nauseated. For that reason yesterday morning we switched her to Pipracil andtazobactam. She seemed to very slowly be getting better. However earlier this evening when I examined her I became concerned that things were not really moving along as well as they should be. For that reason I ordered a CT scan repeat of the abdomen and pelvis. It showed abscess formation as well as free fluid in the pelvis and the gutters of the abdomen. I discussed the situation on the telephone with our on-call surgeon, Dr. Barker, who personally reviewed the CT scan films. He assess the current situation is potentially very complicated. We decided the best course would be to transfer her to a higher level of care. I discussed this with my patient, who agreed to be transferred. We answered her questions at the time of this discussion. I called [facility] and talked with the hospitalist there, Dr. Teofilo Bagley, who agreed to accept her in transfer. We have already made the patient again n.p.o., with all medications being administered parenterally. Consultation Done:: I discussed her situation with our on-call surgeon, Dr. Barker. Procedures Performed: none - Results and Findings Results and Findings: Laboratory Results - last 24 hr 12/08/18 12/08/18 05:31 05:31 WBC 15.2 H RBC 3.75 L Hgb 10.6 L Hct 32.9 L MCV 87.7 MCH 28.3 MCHC 32.2 RDW 13.5 Plt Count 339 MPV 8.8 Immature Gran % (Auto) 0.80 H Immature Gran # (Auto) 0.12 H Neutrophils % 86.0 H Lymphocytes % 8.8 L Monocytes % 4.0 Eosinophils % 0.1 Basophils % 0.3 Nucleated RBC % 0.0 Neutrophils # 13.1 H Lymphocytes # 1.33 L Monocytes # 0.6 Eosinophils # 0.0 Absolute Basophils 0.0 Sodium 140 Plasma Sodium 140 Potassium 3.3 L Chloride 105 Carbon Dioxide 24.9 Anion Gap 13.4 BUN 5 Creatinine 0.75 Est GFR (Non-Af Amer) 87 BUN/Creatinine Ratio 6.7 L Random Glucose 94 Calcium 7.9 Calcium Adj for Albumin 9.0 Total Bilirubin 0.6 AST 12 ALT 11 L Alkaline Phosphatase 59 Total Protein 6.2 Albumin 2.2 L - Medications Medications: Active Medications Enoxaparin Sodium (Lovenox) 40 mg SC Q24H [facility] Stop: 01/06/19 08:01 Last Admin: 12/08/18 08:21 Dose: 40 mg Documented by: Potassium Chloride 20 meq/ (Sodium Chloride) 1,010 mls @ 150 mls/hr IV .Q6H44M [facility]; Protocol Stop: 01/04/19 16:35 Last Infusion: 12/08/18 06:30 Dose: 50 mls/hr Documented by: Metoprolol Tartrate (Lopressor) 25 mg PO BIDWM [facility] Stop: 01/05/19 07:01 Last Admin: 12/08/18 20:00 Dose: 25 mg Documented by: Saccharomyces Boulardii (Florastor) 250 mg PO BID [facility] Stop: 01/06/19 21:01 Last Admin: 12/08/18 22:05 Dose: 250 mg Documented by: Discontinued Medications Amoxicillin/Clavulanate Potassium (Augmentin 500-125 Tablet) 500 mg PO TID [facility]; Protocol Stop: 01/07/19 09:01 Last Admin: 12/08/18 19:59 Dose: 500 mg Documented by: Diatrizoate Meglum/Diatrizoate Sod (Gastrografin Solution) 60 ml PO ONCE ONE Stop: 12/08/18 16:58 Last Admin: 12/08/18 17:00 Dose: 60 ml Documented by: Hydromorphone HCl (Dilaudid) 1 mg IV ONCE ONE Stop: 12/05/18 16:35 Last Admin: 12/05/18 17:06 Dose: 1 mg Documented by: Sodium Chloride (Sodium Chloride 0.9%) 1,000 mls @ 125 mls/hr IV .Q8H PRN PRN Reason: HYDRATION Stop: 01/04/19 16:35 Last Infusion: 12/07/18 12:45 Dose: Infused Documented by: Ciprofloxacin/Dextrose (Cipro) 400 mg in 200 mls @ 200 mls/hr IV Q12H [facility]; Protocol Stop: 01/04/19 20:01 Last Infusion: 12/07/18 09:08 Dose: Infused Documented by: Metronidazole (Flagyl) 500 mg in 100 mls @ 100 mls/hr IV Q8H [facility]; Protocol Stop: 01/04/19 21:01 Last Infusion: 12/07/18 05:26 Dose: Infused Documented by: Piperacillin Sod/Tazobactam (Sod 3.375 gm/ Dextrose/Water) 100 mls @ 25 mls/hr IV Q8H [facility]; Protocol Stop: 01/06/19 12:46 Last Infusion: 12/08/18 09:08 Dose: Infused Documented by: Metoprolol Tartrate (Lopressor) 25 mg PO BIDWM [facility] Stop: 01/04/19 19:31 Last Admin: 12/06/18 07:29 Dose: Not Given Documented by: Metronidazole (Flagyl) 500 mg PO Q8H [facility]; Protocol Stop: 01/04/19 19:31 Last Admin: 12/07/18 03:54 Dose: Not Given Documented by: Morphine Sulfate (Morphine Sulfate) 2 mg IV Q4H PRN PRN Reason: Pain Stop: 01/04/19 19:56 Last Admin: 12/05/18 20:37 Dose: 2 mg Documented by: Morphine Sulfate (Morphine Sulfate) 4 mg IV Q4H PRN PRN Reason: Pain Stop: 01/04/19 19:56 Last Admin: 12/08/18 03:23 Dose: 4 mg Documented by: Morphine Sulfate (Morphine Sulfate Conc. Oral Solution) 9 mg PO Q4H PRN PRN Reason: Pain Stop: 01/07/19 06:24 Last Admin: 12/08/18 20:06 Dose: 9 mg Documented by: Ondansetron HCl (Zofran) 4 mg IV ONCE ONE Stop: 12/05/18 17:30 Last Admin: 12/05/18 17:41 Dose: 4 mg Documented by: Ondansetron HCl (Zofran) 4 mg IV Q6H PRN PRN Reason: Nausea And Vomiting Stop: 01/04/19 19:57 Last Admin: 12/07/18 23:33 Dose: 4 mg Documented by: Ondansetron HCl (Zofran Odt) 4 mg PO Q4H PRN PRN Reason: Nausea Stop: 01/04/19 19:06 Last Admin: 12/08/18 20:05 Dose: 4 mg Documented by: - Disposition Disposition: Short Term Hospital Inpatient Condition: Stable Discharge Date: 12/09/18 - Transfer to [facility] Discharge Time: 00:05
[2018-12-09] MEDS ORDERED: LABETALOL HCL 5 MG/ML VIAL IV ONE (00:40)
[2018-12-09 01:06] VITALS: BP 162/82
== END 2018-12-09 01:05 | disposition short-term general hospital (02) | DRG 392 ==
LOC: ER 16:15 → MS 16:15
PROVIDERS: ADMIT Family Medicine; ATTEND Allergy & Immunology
CPT/HCPCS: 36415; 74177; 80048; 80053; 85025; 96361; 96365; 96366; 96367; 96375; 96376; 99284; G0378; J2405; Q9967